=== PATIENT | male | born 1995 | race Asian ===

== ENCOUNTER 2024-09-19 21:39 | Inpatient (IN) | payer MEDICAID ==
[~2024-09-19] VITALS: Ht 172.7 cm; Wt 56.2 kg
[2024-09-19 23:10] LABS: COVID AG,FIA SOURCE NASAL SWAB
[2024-09-19 23:18] LABS: BASOPHILS % (AUTO) 0.2 % (0.0-2.0); EOSINOPHILS % (AUTO) 0.2 % (1.0-6.0); HEMATOCRIT 49.3 % (41-53); HEMOGLOBIN 16.9 g/dL (13.5-17.5); LYMPHOCYTES % (AUTO) 11.9 % (22.0-44.0); MEAN CORPUSCULAR HEMOGLOBIN 31.4 pg (26.0-34.0); MEAN CORPUSCULAR HGB CONC 34.2 G/dL (31.0-37.0); MEAN CORPUSCULAR VOLUME 92 fL (80-100); MONOCYTES # (AUTO) 0.6 K/uL (0.1-1.0); MONOCYTES % (AUTO) 6.7 % (2.0-9.0); NEUTROPHILS # (AUTO) 7.1 K/uL (1.8-7.7); PLATELET COUNT (AUTO) 237 K/uL (150-450); RED BLOOD CELL COUNT(AUTO) 5.37 MIL/uL (4.50-5.90); RED CELL DISTRIBUTION WIDTH 12.4 % (11.5-14.5); WHITE BLOOD COUNT (AUTO) 8.8 K/uL (4.5-11.0)
[2024-09-19 23:26] LABS: ANION GAP 10 mmol/L (8-16); CALCIUM, TOTAL 9.3 mg/dL (8.8-10.5); CARBON DIOXIDE 29 mmol/L (22-29); CHLORIDE 102 mmol/L (98-107); CREATININE 0.91 mg/dL (0.60-1.30); GLOMERULAR FILTR. RATE CALC > 60 mL/min (>60); GLUCOSE,RANDOM 83 mg/dL (70-110); SODIUM SERUM 141 mmol/L (136-145); UREA NITROGEN, BLOOD 15 mg/dL (7-18)
[2024-09-19 23:27] LABS: SARS-COV2 (COVID) ANTIGEN,FIA Negative (Negative)
[2024-09-19 23:31] LABS: ALCOHOL, BLOOD (SERUM) < 3 mg/dL (0-10)
[2024-09-20] MEDS: LIDOCAINE 1% 10 ML VIAL ID ONE (00:13)
[2024-09-20] MEDS ORDERED: HALOPERIDOL 5 MG TABLET PO PRN (00:45)
[2024-09-20] MEDS ORDERED: LORazepam 2 MG TABLET PO PRN (00:45)
[2024-09-20] MEDS: PERTUSS(ACELL),DIPH,TET/PF 0.5 ML SYRINGE [ADULT] IM. ONE (01:30)
[2024-09-20 04:35] VITALS: BP 125/89; PULSE 99; RESP 18; TEMP 98; O2SAT 96
[2024-09-20 04:37] VITALS: BP 125/89; PULSE 99; RESP 18; TEMP 98; O2SAT 96
[2024-09-20] MEDS ORDERED: MAG HYDROX/ALUMINUM HYD/SIMETH ES 30 ML SUSPENSION UDCUP PO PRN (08:00)
[2024-09-20] MEDS ORDERED: OMEPRAZOLE 20 MG CAPSULE PO PRN (08:00)
[2024-09-20] MEDS ORDERED: IBUPROFEN 600 MG TABLET PO PRN (08:00)
[2024-09-20] MEDS ORDERED: LOPERAMIDE HCL 2 MG CAPSULE PO PRN (08:00)
[2024-09-20] MEDS ORDERED: BENZOCAINE/MENTHOL LOZENGE PO PRN (08:00)
[2024-09-20] MEDS ORDERED: ALBUTEROL SULFATE HFA 90 MCG/PUFF 8 GM INHALER IH PRN (08:00)
[2024-09-20] MEDS ORDERED: DOCUSATE SODIUM 100 MG CAPSULE PO PRN (08:00)
[2024-09-20] MEDS ORDERED: MAGNESIUM HYDROXIDE SUSPENSION 30 ML UDCUP PO PRN (08:00)
[2024-09-20] MEDS ORDERED: BACITRACIN 28 GM OINTMENT TP PRN (08:00)
[2024-09-20] MEDS ORDERED: ONDANSETRON 4 MG TABLET PO PRN (08:00)
[2024-09-20] MEDS ORDERED: PETROLATUM,WHITE 28 GM JELLY TP PRN (08:00)
[2024-09-20] MEDS ORDERED: CloNIDine HCL 0.1 MG TABLET PO PRN (08:00)
[2024-09-20] MEDS ORDERED: ACETAMINOPHEN 325 MG TABLET PO PRN (08:00)
[2024-09-20 21:41] LABS: APPEARANCE,URINE CLEAR (CLEAR); BILIRUBIN,URINE NEGATIVE (NEGATIVE); COLOR,URINE YELLOW (YELLOW); GLUCOSE, URINE (UA) NEGATIVE (NEGATIVE); KETONES,URINE TRACE mg/dL (NEGATIVE); LEUKOCYTE ESTERASE ,URINE NEGATIVE (NEGATIVE); NITRATE,URINE NEGATIVE (NEGATIVE); OCCULT BLOOD,URINE NEGATIVE (NEGATIVE); PROTEIN,URINE TRACE mg/dL (NEGATIVE); SPECIFIC GRAVITIY, URINE 1.033 (1.003-1.030)
[2024-09-20 21:45] LABS: ALCOHOL, URINE DRUG SCREEN NEGATIVE (NEGATIVE); AMPHET/METH SCREEN,URINE NEGATIVE (NEGATIVE); BARBITURATE SCREEN, URINE NEGATIVE (NEGATIVE); BENZODIAZEPINES SCREEN,URINE NEGATIVE (NEGATIVE); CANNABINOID SCREEN,URINE NEGATIVE (NEGATIVE); COCAINE SCREEN,URINE NEGATIVE (NEGATIVE); METHADONE SCREEN, URINE NEGATIVE (NEGATIVE); OPIATE SCREEN,URINE NEGATIVE (NEGATIVE); PHENCYCLIDINE SCREEN,URINE NEGATIVE (NEGATIVE)
[2024-09-20 23:37] VITALS: BP 111/75; PULSE 96; RESP 18; TEMP 97.3; O2SAT 96
[2024-09-21 08:00] VITALS: BP 107/51; PULSE 82; RESP 18; TEMP 98.4; O2SAT 98
[2024-09-21 20:32] VITALS: BP 120/77; PULSE 90; RESP 18; TEMP 97.2; O2SAT 97
[2024-09-21] MEDS: LITHIUM CARBONATE 300 MG CAPSULE PO SCH (21:16)
[2024-09-21] MEDS: ZOLPIDEM TARTRATE 10 MG TABLET PO PRN (21:51)
[2024-09-22 09:32] VITALS: BP 103/65; PULSE 86; RESP 17; TEMP 98.2; O2SAT 96
[2024-09-22] MEDS ORDERED: LITH300C3 PO (09:57)
== END 2024-09-22 16:28 | disposition home or self-care (01) | DRG 881 ==
LOC: EMS 21:39 → 3EI 09-20 01:56 → EMS 09-20 01:56
PROVIDERS: ADMIT Psychiatry & Neurology Psychiatry; ATTEND Psychiatry & Neurology Psychiatry
PROC: 0HQEXZZ Repair Left Lower Arm Skin, External Approach (ICD-10-PCS; principal; 2024-09-20)
DX: F32.9 Major depressive disorder, single episode, unspecified (principal); R45.851 Suicidal ideations; F41.9 Anxiety disorder, unspecified; G47.00 Insomnia, unspecified; K59.00 Constipation, unspecified; Z20.822 Contact with and (suspected) exposure to COVID-19; S61.511A Laceration without foreign body of right wrist, initial encounter; S61.512A Laceration without foreign body of left wrist, initial encounter; F19.10 Other psychoactive substance abuse, uncomplicated; Y90.0 Blood alcohol level of less than 20 mg/100 ml; X78.1XXA Intentional self-harm by knife, initial encounter; Y93.89 Activity, other specified; Y92.89 Other specified places as the place of occurrence of the external cause; Y99.8 Other external cause status; Z72.0 Tobacco use
CPT/HCPCS: 12002; 80048; 80307; 81003; 85025; 90715; 99285; G0480; J3490